=== PATIENT | female | born 1980 | race African-American/Black ===

== ENCOUNTER 2017-01-16 14:57 | Emergency (ER) | payer OTHER ==
[~2017-01-16] VITALS: Ht 162.6 cm; Wt 56.5 kg
[2017-01-16 15:32] VITALS: BP 121/63
[2017-01-16] MEDS ORDERED: NAPROXEN 500 MG TABLET PO ONE (15:45)
--- NOTE | 2017-01-16 17:18 | RAD ---
EXAM: Right ankle, 3 views. HISTORY: Inability to bear weight. COMPARISON: None. FINDINGS: Frontal, lateral and mortise views of the right ankle are obtained. There are small avulsion fracture fragment along the anterior lateral calcaneus. The ankle mortise is intact. There is lateral predominant ankle and hindfoot soft tissue swelling. There is a tiny ossicle or calcification within the soft tissues dorsal to the first tarsometatarsal joint. IMPRESSION: Mildly displaced fracture fragment along the anterior lateral calcaneus. Electronically signed by: Yolande Wheat MD (01/16/2017 5:15 PM)
[2017-01-16] MEDS ORDERED: OXYC-323 PO (18:01)
[2017-01-16] MEDS ORDERED: NAPR250T2 PO (18:01)
--- NOTE | 2017-01-16 18:59 | ED.ADGEN ---
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 She states that last night she tripped while exiting her sister's house, and twisted her foot and ankle. She states that she was hoping the pain would improve throughout the day, but it has persisted, prompting her to come to the ED this afternoon for evaluation. She has not taken any medications or applied any therapies prior to arrival in the ED. Is ambulating with difficulty upon arrival to the ED. Denies any previous injuries. Patient noted to have an abrasion on her forehead, states she did hit her head against the door frame when she fell, but denies any headache, any vision changes, any focal weakness, numbness, tingling, nausea, vomiting, chest pain, shortness breath or other complaints. Does not use any anticoagulants or other medications on a regular basis. Review of Systems Review of Systems Constitutional: Denies fever or chills [] Eyes: Denies change in visual acuity, redness, or eye pain [] HENT: Denies nasal congestion or sore throat [] Respiratory: Denies cough or shortness of breath [] Cardiovascular: No additional information not addressed in HPI [] GI: Denies abdominal pain, nausea, vomiting, bloody stools or diarrhea [] : Denies dysuria or hematuria [] Musculoskeletal: Denies back pain, pain in the right foot and ankle. Integument: Denies rash or skin lesions [] Neurologic: Denies headache, focal weakness or sensory changes [] Endocrine: Denies polyuria or polydipsia [] Current Medications Current Medications Current Medications Medications (Trade) Dose Ordered Sig/[facility] Start Time Stop Time Status Last Admin Dose Admin Naproxen (Naprosyn) 500 mg 1X ONCE 01/16/17 15:45 01/16/17 15:46 DC 01/16/17 15:45 500 MG Allergies Allergies Allergies Coded Allergies Type Severity Reaction Last Updated Verified No Known Drug Allergies 01/16/17 No Physical Exam Physical Exam Constitutional: Well developed, well nourished, no acute distress, non-toxic appearance. [] HENT: Normocephalic, atraumatic, bilateral external ears normal, oropharynx moist, no oral exudates, nose normal. [] Eyes: PERRLA, EOMI, conjunctiva normal, no discharge. [] Neck: Normal range of motion, no tenderness, supple, no stridor. [] Cardiovascular:Heart rate regular rhythm, no murmur [] Lungs & Thorax: Bilateral breath sounds clear to auscultation [] Abdomen: Bowel sounds normal, soft, no tenderness, no masses, no pulsatile masses. [] Skin: Warm, dry, no erythema, no rash. [] Back: No tenderness, no CVA tenderness. [] Extremities: No tenderness, no cyanosis, no clubbing, ROM intact, no edema. [] Neurologic: Alert and oriented X 3, normal motor function, normal sensory function, no focal deficits noted. [] Psychologic: Affect normal, judgement normal, mood normal. [] Current Patient Data Vital Signs Vital Signs Date Time Temp Pulse Resp B/P (MAP) Pulse Ox O2 Delivery O2 Flow Rate FiO2 01/16/17 15:32 98.3 114 20 99 Room Air EKG EKG Not indicated. [] Radiology/Procedures Radiology/Procedures [][place] [id number] IMAGING REPORT Signed PATIENT: LEOLA SINGLETON ACCOUNT: [id number] : 1980 LOCATION: ER AGE: 36 SEX: F EXAM STATUS: REG ER ORD. PHYSICIAN: ANAI HAMILTON DO REASON: pain/trauma PROCEDURE: FOOT RIGHT 3V EXAM: Right ankle, 3 views. HISTORY: Inability to bear weight. COMPARISON: None. FINDINGS: Frontal, lateral and mortise views of the right ankle are obtained. There are small avulsion fracture fragment along the anterior lateral calcaneus. The ankle mortise is intact. There is lateral predominant ankle and hindfoot soft tissue swelling. There is a tiny ossicle or calcification within the soft tissues dorsal to the first tarsometatarsal joint. IMPRESSION: Mildly displaced fracture fragment along the anterior lateral calcaneus. Electronically signed by: Yolande Rogers MD (01/16/2017 5:15 PM) DICTATED AND SIGNED BY: YOLANDE ROGERS MD DATE: 01/16/17 1747 CC: ANAI HAMILTON DO; HOUSTON KEATING MD ~ Course & Med Decision Making Course & Med Decision Making Pertinent Labs and Imaging studies reviewed. (See chart for details) X-rays obtained of the ankle and foot, patient also received an ice pack, and naproxen in the ED. Patient states she is resting comfortably on reevaluation. She is feeling better. X-rays of the foot reveal a small avulsion fracture of the anterior lateral calcaneus. Soft tissue swelling noted, no other fractures identified. Patient placed in a hard soled surgical shoe for support, given crutches and crutch walking instructions the ED, patient crutch walking without issue. Patient was also given prescription for naproxen, Percocet, along with medication instructions and precautions, instructed to follow-up with Dr. Granado of orthopedics for additional evaluation, and to return to the ED for concerning symptoms as discussed. Patient voiced understanding and agreement with these instructions, discharged home in stable condition, ambulating without difficulty with crutches upon exiting the emergency department. Final Impression Final Impression [] Problems: Dragon Disclaimer Dragon Disclaimer This electronic medical record was generated, in whole or in part, using a voice recognition dictation system. Departure: Impression: Primary Impression: Calcaneus fracture, right Disposition: 01 HOME, SELF-CARE Condition: IMPROVED Scripts Oxycodone Hcl/Acetaminophen (PERCOCET 5-325 MG TABLET) 1 Each Tablet 1 TAB PO QID Y for PAIN, #12 TAB Prov: ANAI HAMILTON DO 01/16/17 Naproxen (NAPROXEN) 250 Mg Tablet 250 MG PO PRN BID Y for PAIN, #10 TAB Prov: ANAI HAMILTON DO 01/16/17 ANAI HAMILTON DO January 16, 2017 18:59
--- NOTE | 2017-01-17 08:37 | RAD ---
Right ankle radiographs History: Pain, trauma. Comparison: None. Findings: AP, lateral, and oblique views of the right ankle. On the frontal view, there is fragmentation adjacent to lateral aspect of the calcaneus, compatible with small, acute, comminuted calcaneal fracture. Impression: Acute, comminuted lateral calcaneal fracture.
== END 2017-01-16 18:18 | disposition home or self-care (01) ==
LOC: ER 14:57
DX: S92.021A Displaced fracture of anterior process of right calcaneus, initial encounter for closed fracture (principal); S00.81XA Abrasion of other part of head, initial encounter; W18.49XA Other slipping, tripping and stumbling without falling, initial encounter; Y93.89 Activity, other specified; Y99.8 Other external cause status; Y92.89 Other specified places as the place of occurrence of the external cause
CPT/HCPCS: 73610; 73630; 99284

== ENCOUNTER → 2020-08-25 | Outpatient (CLI) | payer MEDICAID ==
[~2020-08-25] MED LIST: NAPR-699 PO; OXYC1TAB15 PO
--- NOTE | 2020-08-25 12:38 | RAD ---
EXAM: Cervical spine, 4 views. HISTORY: Pain. COMPARISON: None. FINDINGS: 4 views of the cervical spine are obtained. There is degenerative endplate remodeling with anterior osteophytosis at C4-C5 and C5-C6 and C6-C7. There is a right lateral inferior head tilt and thoracic dextroscoliosis. There is multilevel right facet arthropathy. IMPRESSION: 1. Multilevel degenerative change, primarily at C4-C7. 2. Right lateral inferior head tilt and thoracic dextroscoliosis. There is due to its to right predom inant facet arthropathy. Electronically signed by: Yolande Wheat MD (08/25/2020 12:35 PM) [id number]
== END ==
LOC: RAD 12:06
DX: M47.812 Spondylosis without myelopathy or radiculopathy, cervical region (principal); M41.84 Other forms of scoliosis, thoracic region
CPT/HCPCS: 72040